=== PATIENT | female | born 1955 | race Caucasian/White ===

== ENCOUNTER 2017-08-01 19:33 | Outpatient (CLI) | payer BC ==
--- NOTE | 2017-08-01 20:19 | RAD ---
TWO VIEW CHEST 08/01/17 COMPARISON: Single frontal view chest, 03/09/17. CLINICAL HISTORY: Difficulty breathing. Chest pain. FINDINGS: There is no focal consolidation, effusion or pneumothorax. The cardiac silhouette is within normal li mits of size. There is mild osseous degenerative changes. IMPRESSION: No focal consolidation. POS: H
== END 2017-08-01 19:34 | disposition home or self-care (01) ==
LOC: NAV RAD 19:33
PROVIDERS: ATTEND Family Medicine
DX: L04.0 Acute lymphadenitis of face, head and neck (principal)
CPT/HCPCS: 71046